=== PATIENT | female | born 1945 | race Caucasian/White ===

== ENCOUNTER 2018-02-28 10:06 | Outpatient (CLI) | payer OTHER ==
[~2018-02-28 10:06] MED LIST: CIPRO500 MG PO; TRAMADOL HCL-AP1 TAB PO; ZANTAC300 MG PO
== END 2018-02-28 10:08 | disposition home or self-care (01) ==
LOC: SONOGRAMA 10:06 → MAMO-SONO 10:45
DX: E03.8 Other specified hypothyroidism (principal); E11.51 Type 2 diabetes mellitus with diabetic peripheral angiopathy without gangrene; E04.2 Nontoxic multinodular goiter

== ENCOUNTER 2018-05-08 07:08 | Outpatient (CLI) | payer OTHER | END 2018-05-08 07:22 | disposition home or self-care (01) | LOC: RAD 07:08 → MRI 07:45 | DX: Z12.31 Encounter for screening mammogram for malignant neoplasm of breast (principal); Z87.898 Personal history of other specified conditions; N60.11 Diffuse cystic mastopathy of right breast; N60.12 Diffuse cystic mastopathy of left breast; R41.3 Other amnesia; I65.22 Occlusion and stenosis of left carotid artery; D49.6 Neoplasm of unspecified behavior of brain; G40.909 Epilepsy, unspecified, not intractable, without status epilepticus | CPT/HCPCS: 70549; 70553; 77067; A9575 ==

== ENCOUNTER 2019-08-21 10:04 | Outpatient (CLI) | payer OTHER | END 2019-08-21 13:21 | disposition home or self-care (01) | LOC: RAD 10:04 | DX: Z01.811 Encounter for preprocedural respiratory examination (principal) ==

== ENCOUNTER 2020-01-02 09:57 | Outpatient (CLI) | payer OTHER | END 2020-01-02 10:04 | disposition home or self-care (01) | LOC: RAD 09:57 | DX: K21.9 Gastro-esophageal reflux disease without esophagitis (principal); G72.89 Other specified myopathies ==

== ENCOUNTER 2020-04-18 08:41 | Outpatient (CLI) | payer OTHER | END 2020-04-18 08:55 | disposition home or self-care (01) | LOC: MAMO-SONO 08:41 | PROVIDERS: ATTEND Family Medicine Adult Medicine | DX: R92.0 Mammographic microcalcification found on diagnostic imaging of breast (principal); Z12.31 Encounter for screening mammogram for malignant neoplasm of breast; N64.59 Other signs and symptoms in breast ==

== ENCOUNTER → 2020-04-18 | Outpatient (CLI) | payer OTHER | END | disposition home or self-care (01) | LOC: NUCLEAR 08:35 | PROVIDERS: ATTEND Family Medicine Adult Medicine | DX: M81.0 Age-related osteoporosis without current pathological fracture (principal); E03.8 Other specified hypothyroidism ==

== ENCOUNTER 2022-04-21 10:05 | Outpatient (CLI) | payer OTHER | END 2022-04-21 10:13 | disposition home or self-care (01) | LOC: MAMO-SONO 10:05 | PROVIDERS: ATTEND Family Medicine Adult Medicine | DX: Z12.31 Encounter for screening mammogram for malignant neoplasm of breast (principal); N60.19 Diffuse cystic mastopathy of unspecified breast; N64.4 Mastodynia ==

== ENCOUNTER 2022-10-01 07:08 | Outpatient (CLI) | payer OTHER | END 2022-10-01 07:20 | disposition home or self-care (01) | LOC: SONOGRAMA 07:08 | PROVIDERS: ATTEND Family Medicine Adult Medicine | DX: K21.9 Gastro-esophageal reflux disease without esophagitis (principal); R10.10 Upper abdominal pain, unspecified ==

== ENCOUNTER 2022-11-29 09:47 | Outpatient (CLI) | payer OTHER | END 2022-11-29 09:53 | disposition home or self-care (01) | LOC: SONOGRAMA 09:47 | PROVIDERS: ATTEND Family Medicine Adult Medicine | DX: E04.1 Nontoxic single thyroid nodule (principal) ==

== ENCOUNTER 2023-03-28 08:46 | Outpatient (CLI) | payer OTHER | END 2023-03-28 08:49 | disposition home or self-care (01) | LOC: SONOGRAMA 08:46 | PROVIDERS: ATTEND Pathology Anatomic Pathology & Clinical Pathology | DX: E03.9 Hypothyroidism, unspecified (principal); D44.0 Neoplasm of uncertain behavior of thyroid gland ==

== ENCOUNTER 2024-06-18 11:03 | Outpatient (CLI) | payer OTHER | END 2024-06-18 11:05 | disposition home or self-care (01) | LOC: SONOGRAMA 11:03 | DX: E04.1 Nontoxic single thyroid nodule (principal); E03.8 Other specified hypothyroidism ==